=== PATIENT | female | born 1990 | race Native Hawaiian/Other Pacific Islander ===

== ENCOUNTER 2018-08-29 15:22 | Inpatient (IN) | payer MEDICAID, OTHER ==
[2018-08-29 16:30] VITALS: BMI 31.5
[2018-08-29] MEDS ORDERED: Lactated Ringer's 1,000 ML IV ONE (16:30)
[2018-08-29 17:25] LABS: BASO % 0.2 % (0.0-2.0); EOS # 0.1 K/uL (0.0-0.7); EOS % 1.3 % (0.0-4.0); HEMOGLOBIN 13.4 g/dL (12.0-16.0); LYMPH # 2.1 K/uL (1.0-4.3); LYMPH % 23.4 % (20.0-40.0); MEAN CELL VOLUME 86.2 fl (81.0-99.0); MEAN CORPUSCULAR HEMOGLOBIN 30.4 pg (27.0-31.0); MEAN CORPUSCULAR HGB CONC 35.3 g/dL (33.0-37.0); MEAN PLATELET VOLUME 7.6 fl (7.2-11.7); MONO # 0.7 K/uL (0.0-0.8); MONO % 7.7 % (0.0-10.0); NEUT # 5.9 K/uL (1.8-7.0); NEUT % 67.4 % (50.0-75.0); RBC 4.41 Mil/uL (3.80-5.20); RED CELL DISTRIBUTION WIDTH 12.5 % (11.5-14.5); WHITE BLOOD COUNT 8.8 K/uL (4.8-10.8)
--- NOTE | 2018-08-29 18:19 | OBADHP ---
Datetime: 08/29/2018 16:00 IP Chief Complaint Other: IUFD Admit Comment, IP Provider: HPI: Desiree is a 27 year old G1 at 19.5 weeks by LMP admitted for IOL secondary to IUFD. This has been complicated by a diagnosis of hydrops approximately 4 weeks ago and a positive screen for Trisomy 21 2 weeks ago. At her US appt yesterday there was no F HR and the fetus was measuring 4 weeks behind her dates. She was counseled on options at the clinic a nd has opted for IOL. PMH Denies PSH Denies Medications PNV Allergies NKDA Social FOB is involved. No tobacco, alcohol or drug use during the FH Not significant PHYSICAL EXAM labs: B+, antibody neg, HIV/RPR nonreactive, GC/Chlamydia neg, Rubella immune ASSESSMENT/PLAN: 27 year old G1 here with demise at 19.5 weeks. with known a nomalies. Again discussed D_E options with patient vs IOL and she prefers IOL. Discussed timeline for IOL and possible need for D_C if IOL fails. - T_S ordered, CBC - Pain medication available Plan discussed with attending, Dr. Andres Cross MD OB Fellow OB Hospitalist on-call. Patient was sent by [facility] for medical induction @16w by size/missed ab. She was counselled by Dr Moss earlier this week. She went home to think about it. She was seen today by Dr Timmy Leong and sent in. The condition, treatment options - medical/surgical, with risks/compli cations were discussed. She already understood what was told to her earlier this week. She had no ot her questions. will start Cytotec 400mcg po q 3-4h. MAHNDO Lungs - PN: Normal Heart - PN: Normal Thyroid - PN: Normal HEENT - PN: Normal General - PN: Normal IP Hx Assessment: The History has been Reviewed and is Current Vital Signs Provider: Reviewed; Within Normal Limits IP Chief Complaint: Other EGA AdmitDate IP: 19.6 IP Adm Impression: Missed IP Admit Plan: Admit to unit; Initiate labor induction protocol
[2018-08-29] MEDS ORDERED: Nalbuphine HCL 10 mg/ml Ampule IVP PRN ×2 (21:36)
[2018-08-29] MEDS ORDERED: Promethazine 25 MG in Sodium Chloride 0.9% 100 ML IVPB PRN (22:39)
[2018-08-30] MEDS ORDERED: Oxytocin 30 UNIT in NS 500 ml 30 UNITS/500 ML BAG IV ONE (04:21)
[2018-08-30] MEDS ORDERED: HYDROmorphone 0.5 mg/0.5 ml ISec IVP ONE (04:36)
[2018-08-30] MEDS ORDERED: Oxytocin 10 Units/ml Inj ONE (05:29)
[2018-08-30] MEDS ORDERED: Oxytocin 10 Units/ml Inj IM ONE (05:30)
--- NOTE | 2018-08-30 11:22 | OBDS ---
DELIVERY PERSONNEL Delivery Doctor: Michelle Barrow MD Molecular Modeler: Ma. Elen Elliott RN MATERNAL INFORMATION Delivery Anesthesia: None Medications in Delivery: 10 u pitocin Placenta Cultured: Yes Maternal Complications: Other Other Maternal Complications: spontaneous <20wks Provider Comments: Patient was fully dilated and the fetus was felt in the breech positioning and in a bag of membranes. The whole fetus was expelled in an intact bag of membranes, the placenta followed after this expul shayan. The uterus was digitally explored for additional products of conception and some membranes were re moved. No active bleeding after the procedure. EBL- 80 mls. Patient tolerated the procedure well. LABOR SUMMARY EDC: 01/18/2019 00:00 No. Babies in Womb: 1 Labor Anesthesia: None LABOR INFORMATION Reason for Induction: Anomalies Onset of Labor: 08/29/2018 23:00 Complete Dilatation: 08/30/2018 05:25 Cervical Ripening Agents: Cytotec @ Steroids Given: None Reason Steroids Not Administered: Not Applicable STAGES OF LABOR Stage 1 hrs: 6 Stage 1 min: 25 Stage 2 hrs: 0 Stage 2 min: 3 Stage 3 hrs: 0 Stage 3 min: 0 Total Time in Labor hrs: 6 Total Time in Labor min: 28 VAGINAL DELIVERY Episiotomy: None Laceration Extension: N/A Laceration Type: None Sponge Count Correct: N/A CSECTION DELIVERY Primary Indication: N/A Secondary Indication: N/A CSection Urgency: N/A CSection Incidence: N/A Labor: N/A Elective: N/A CSection Incision: N/A BABY A INFORMATION Infant Delivery Date/Time: 08/30/2018 05:28 Method of Delivery: Vaginal Born in Route : No : N/A Forceps: N/A Vacuum Extraction: N/A Shoulder Dystocia : No SHOULDER DYSTOCIA BABY A Infant Delivery Date/Time: 08/30/2018 05:28 PLACENTA INFORMATION BABY A Placenta Delivery Time : 08/30/2018 05:28 Placenta Method of Delivery: Spontaneous Placenta Status: Delivered INFANT INFORMATION BABY A Gestational Age at Delivery: 19.6 Gestational Status: Term Infant Outcome : AB < 20 Weeks WEIGHT/LENGTH BABY A Infant Birthweight (gms): 265 Weight (lb): 0 Infant Weight (oz): 9 CORD INFORMATION BABY A Nuchal Cord : N/A Suction: None
--- NOTE | 2018-08-30 14:23 | OBDCSUM ---
Datetime: 08/30/2018 10:58 Discharged to, Provider: Home Follow up at, Provider: [facility] Follow up at, Provider: [facility] Disch Instr Activity: Normal activity; May be up to bathroom; May be up for meals; May Shower Disch Instr Diet: Regular Discharge Diet restrict Prov: As per Dr Barrow Patient to wait at least 2 weeks to resume sexual i ntercourse. Discharge Instructions, Provider: Routine instructions given Discharge Diagnosis, Provider: Induced Discharge Time: 08/30/2018 11:30 Follow up in weeks, Provider: Please see note in comments Follow up in weeks, Provider: 2 weeks Disch Referrals: None Disch Activity Restrictions: No sexual activity; Nothing in vagina - Shelley, tampons, douche Discharge Comment, Provider: 27 yo at 19.5 weeks by LMP admitted for IOL secondary to IUFD. was complicated by a diagnosis of hydrops approximately 4 wks ago and a positive scre en for Trisomy 21 2 wks ago. Patient was observed and IOL was planned with patient. Patient was given Cytotec and passed contents overnight. Patient reports feeling well and will follow up with [facility] in 2 weeks. All questions answered. Patient given one dose of Doxycycline 200mg prior to discharge. Discussed with Dr. Danial Don, PGY 1 Contraception after Delivery: Undecided
[2018-08-30 16:23] VITALS: BP 121/68; PULSE 75; RESP 16; TEMP 99; O2SAT 100
== END 2018-08-30 12:22 | disposition home or self-care (01) | DRG 560 ==
LOC: H.EROB2 15:22 → H.L&D 16:30
PROVIDERS: ADMIT Obstetrics & Gynecology; ATTEND Obstetrics & Gynecology
PROC: 3E033VJ Introduction of Other Hormone into Peripheral Vein, Percutaneous Approach (ICD-10-PCS; 2018-08-29)
PROC: 4A1HXCZ Monitoring of Products of Conception, Cardiac Rate, External Approach (ICD-10-PCS; 2018-08-29)
PROC: 10E0XZZ Delivery of Products of Conception, External Approach (ICD-10-PCS; principal; 2018-08-30)
DX: O36.22X0 Maternal care for hydrops fetalis, second trimester, not applicable or unspecified (principal); O36.4XX0 Maternal care for intrauterine death, not applicable or unspecified; O43.892 Other placental disorders, second trimester; O35.1XX0 Maternal care for (suspected) chromosomal abnormality in fetus, not applicable or unspecified; Z37.1 Single stillbirth; Z3A.19 19 weeks gestation of pregnancy